=== PATIENT | male | born 1960 | race African-American/Black ===

== ENCOUNTER → 2016-12-17 | Outpatient (CLI) | payer BC, OTHER | LOC: CAT 12-08 08:22 | DX: Z13.6 Encounter for screening for cardiovascular disorders (principal) ==

== ENCOUNTER → 2018-08-21 | Outpatient (CLI) | payer BC, OTHER | LOC: RAD 12:05 | DX: M77.31 Calcaneal spur, right foot (principal); M79.89 Other specified soft tissue disorders ==

== ENCOUNTER → 2019-08-20 | Outpatient (CLI) | payer BC, OTHER ==
[2019-08-20 13:02] LABS: CREATININE 1.1 mg/dL (0.7-1.3)
== END ==
LOC: CAT 11:31
PROVIDERS: Nurse Practitioner
DX: R05 Cough (principal)

== ENCOUNTER → 2019-08-31 | Outpatient (CLI) | payer BC, OTHER | LOC: MRI 07:10 | DX: M51.27 Other intervertebral disc displacement, lumbosacral region (principal); D18.09 Hemangioma of other sites; M51.9 Unspecified thoracic, thoracolumbar and lumbosacral intervertebral disc disorder; G95.89 Other specified diseases of spinal cord ==

== ENCOUNTER → 2020-08-04 | Outpatient (CLI) | payer BC | LOC: LAB 12:14 | PROVIDERS: ATTEND Nurse Practitioner | DX: Z20.822 Contact with and (suspected) exposure to COVID-19 (principal) ==

== ENCOUNTER → 2021-04-13 | Outpatient (CLI) | payer OTHER | LOC: CAT 15:31 | PROVIDERS: ATTEND Family Medicine | DX: Z13.6 Encounter for screening for cardiovascular disorders (principal); E78.00 Pure hypercholesterolemia, unspecified; I25.10 Atherosclerotic heart disease of native coronary artery without angina pectoris ==